=== PATIENT | female | born 1930 | race African-American/Black ===

== ENCOUNTER 2017-09-30 17:38 | Inpatient (IN) | payer OTHER ==
[~2017-09-30] VITALS: Ht 162.6 cm; Wt 75.5 kg
--- NOTE | ~2017-09-30 | 2DMMODE ---
[facility] [address] [place] [address] 2 D/M-MODE ECHOCARDIOGRAM Name: ED BASS Room #: 363-P ADM IN M.R.#: [id number] Admission: 09/30/17 Attend Phys: Jaz Escobedo Discharge: Date of : [birth year] Date of Service: 10/01/17 1108 Report #: [id number] THIS REPORT FOR: //name// APPROVED REPORT Study performed: 10/01/2017 10:27:12 EXAM: Comprehensive 2D, Doppler, and color-flow Echocardiogram Patient Location: Echo lab Room #: [facility] Status: routine BSA: 1.78 HR: 106 bpm BP: 140/96 mmHg Rhythm: Tachycardia Other Information Study Quality: Adequate Indications Elevated troponin, CHF. Hx: Afib, CHF, CM 2D Dimensions RVDd: 37.56 mm LVEF(%): 24.80 (>50%) IVSd: 9.21 (7-11mm) LVOT Diam: 20.33 (18-24mm) LVDd: 50.24 mm PWd: 8.56 (7-11mm) LVDs: 44.47 (25-40mm) Aortic Root: 35.67 mm Valerio's LVEF: 24.80 % Volumes Left Atrial Volume (Systole) Single Plane 4CH: 71.65 mL Single Plane 2CH: 85.41 mL LA ESV Index: 48.00 mL/m2 Aortic Valve AoV Peak Jeramy.: 1.82 m/s AO Peak Gr.: 13.26 mmHg LVOT Max P.51 mmHg LVOT Max V: 1.17 m/s ORALIA Vmax: 2.09 cm2 Pulmonary Valve PV Peak Jeramy.: 1.01 m/s PV Peak Gr.: 4.08 mmHg [facility] [place] [address] 2 D/M-MODE ECHOCARDIOGRAM Name: ED BASS Room #: 363-[facility] IN ..#: [id number] Admission: 09/30/17 Attend Phys: Jaz Escobedo Discharge: Date of : [birth year] Date of Service: 10/01/17 1108 Report #: [id number] Tricuspid Valve TR Peak Jeramy.: 2.77 m/s RAP Estimate: 5.00 mmHg TR Peak Gr.: 30.72 mmHg PA Pressure: 36.00 mmHg Left Ventricle The left ventricle is normal size. There is normal left ventricular wall thickness. Left ventricular systolic function is moderately decreased. LVEF is 35%. This study is not technically sufficient to allow evaluation of the LV diastolic function. Right Ventricle The right ventricle is normal size. Right ventricle is mildly hypokinetic. Atria Left atrium is severely dilated. The right atrium size is normal. Aortic Valve Aortic valve leaflets are mildly thickened and calcified, trileaflet. Trace aortic regurgitation. There is no aortic valvular stenosis. Mitral Valve Mitral valve leaflets are mildly thickened and calcified. Moderate mitral regurgitation. No evidence of mitral valve stenosis. Tricuspid Valve The tricuspid valve is normal in structure. Mild tricuspid regurgitation. Estimated PAP is 35-40mmHg. Pulmonic Valve The pulmonary valve is normal in structure. Trace pulmonic regurgitation. Great Vessels The aortic root is normal in size. Ascending aorta is not well visualized. IVC is normal in size and collapses >50% with inspiration. Pericardium Trace pericardial effusion <Conclusion> [facility] [address] [place] [address] 2 D/M-MODE ECHOCARDIOGRAM Name: ED BASS Room #: 363-P [facility] IN M.R.#: [id number] Admission: 09/30/17 Attend Phys: Jaz Escobedo Discharge: Date of : [birth year] Date of Service: 10/01/17 1108 Report #: [id number] Left ventricular systolic function is moderately decreased. LVEF is 35%. Left atrium is severely dilated. Aortic valve leaflets are mildly thickened and calcified, trileaflet. No aortic valvular stenosis, trace insufficiency. Mitral valve leaflets are mildly thickened and calcified. Moderate mitral regurgitation. Mild tricuspid regurgitation. Estimated pulmonary artery pressure of 35-40mmHg. Trace pericardial effusion <ELECTRONICALLY SIGNED> By: Donald Nunez MD, FACC 10/01/17 1108 1108 1108 Donald Nunez MD, FACC /INF
--- NOTE | ~2017-09-30 | HC ---
[facility] [place] [address] CONSULTATION Name: ED BASS Room #: 363-P [facility] IN M.R.#: [id number] Admission: 09/30/17 Attend Phys: Seth Mullen MD Discharge: 10/04/17 Date of : [birth year] Report #: [id number] THIS REPORT FOR: //name// CC: Suzanne Mullen REASON FOR CONSULTATION: Elevated creatinine. REASON FOR PRESENTATION: Shortness of breath and weakness. HISTORY OF PRESENT ILLNESS: An 86-year-old with extensive past medical history including congestive heart failure. She is known to have SVT, cardiomyopathy, DVT. She resides at [facility]. She started to have some weakness and shortness of breath a few days before her presentation. She denies any chest pain. Shortness of breath was at rest and on exertion. No syncope. She did report to some orthopnea. She was brought for further evaluation and management. On presentation, she was found to have an elevated creatinine at 2.5. The last creatinine we have on her was back in 09/2015 and this was 0.6. I am being asked to evaluate her for her kidney issues. UA looked dirty on presentation and cultures grew E. coli. As of this morning, her creatinine is slightly better down to 2.3. She is not aware of any previous renal issues as she stated. However, I am not really sure how accurate it is. Ejection fraction was found to be 35%. She had some moderate valvular issues. PAST MEDICAL HISTORY: 1. Cardiomyopathy. 2. Atrial fibrillation. 3. DVT. 4. Degenerative joint disease. FAMILY HISTORY: Significant for heart disease on her mother's side. SOCIAL HISTORY: She lives at the [facility]. She is . No drug or alcohol abuse. ALLERGIES: No known drug allergies. PAST SURGICAL HISTORY: 1. Hysterectomy. 2. Hernia repair. 3. Pain in the left hip. MEDICATIONS: 1. Lasix. 2. Potassium. 3. Carvedilol. 4. Lisinopril. [facility] [address] [place] [address] CONSULTATION Name: ED BASS Room #: 363-P [facility] IN M.R.#: [id number] Admission: 09/30/17 Attend Phys: Seth Mullen MD Discharge: 10/04/17 Date of : [birth year] Report #: [id number] REVIEW OF SYSTEMS: GENERAL: No fever or chills, but significant for weakness. CARDIOVASCULAR: No chest pain. PULMONARY: No cough, but significant for shortness of breath. GASTROINTESTINAL: No nausea or vomiting. GENITOURINARY: As per the history of present illness. PHYSICAL EXAMINATION: GENERAL: He is alert, oriented. VITAL SIGNS: Blood pressure is low at 85/53. HEAD AND NECK: Elevated jugular venous pressure. CHEST: No crackles. CARDIOVASCULAR: No rub. ABDOMEN: Soft, nontender. LOWER EXTREMITIES: Trace edema. LABORATORY DATA: Reviewed. Thrombocytopenia present. Creatinine is down to 2.3. Potassium is low at 3.0. ASSESSMENT, IMPRESSION AND PLAN: 1. Acute kidney injury. 2. Chronic kidney disease. 3. Congestive heart failure. 4. Atrial fibrillation. 5. Remote history of cerebrovascular accident. 6. Hypertension. 7. Agree with the current management and plan of holding her LINDA inhibitor, Lasix. 8. Gentle hydration. 9. Augment her heart medications. 10. Replace electrolytes. 11. Creatinine seems to be trending down; however, I am not really sure where it would settle given the fact that the last creatinine we have on her was back in 2016. 10. Continue to avoid nephrotoxins. 11. We probably can stop the IV fluid in the morning. <ELECTRONICALLY SIGNED> By: Aurelio Winkler MD 10/07/17 0832 0920 1016 Aurelio Winkler MD /nt
--- NOTE | ~2017-09-30 | EKG ---
[address] [place] [address] ELECTROCARDIOGRAM REPORT Name: ED BASS Room #: 363-P ADM IN M.R.#: [id number] Admission: 09/30/17 Attend Phys: Jaz Munoz Discharge: Date of : [birth year] Report #: [id number] THIS REPORT FOR: //name// [facility] Test Date: 2017-09-30 Test Time: 17:46:58 Pat Name: ED BASS Department: Room: 363 Gender: F Market Analysis Director: IRINEO : 1930 Requested By: Lila Lugo Order Number: [id number] MD: Carlos Betancourt Measurements Intervals [place] Rate: 92 P: 0 [place]: 179 QRS: -42 QRSD: 110 T: 52 QT: 413 QTc: 511 Interpretive Statements Sinus rhythm Left anterior fascicular block Abnormal R-wave progression, late transition Minimal ST elevation, lateral leads Electronically Signed On 10-01-2017 7:44:20 TEA ROOM MANAGER by Carlos Betancourt [email or web address] <ELECTRONICALLY SIGNED> By: Carlos Betancourt MD 10/01/17 0744 45 45 Carlos Betancourt MD /NAZ
[~2017-09-30 17:38] MED LIST: CARAFATE 1 GM TA1 G1 PO; CARVEDILOL12.5 MG PO; GABAPENTIN 100100 MG PO; GABAPENTIN100 MG PO; LASIX 20 MG TAB20 MG PO; METOPROLOL TART25 MG PO; NORCO 7.5-3251 EACH PO; PACERONE 200 M200 M1 PO; PAXIL10 MG; POTASSIUM20 PO; PRINIVIL10 MG PO; XARELTO20 MG PO
[2017-09-30 17:40] VITALS: BP 124/93
[2017-09-30 18:00] LABS: HEMATOCRIT 34.1 % (37.0-47.0); RBC 3.76 mil/uL (4.20-5.00); WBC 11.8 thou/uL (4.0-11.0)
[2017-09-30 18:01] LABS: HEMOGLOBIN 11.1 gm/dL (12.0-15.0); MCH 29.6 pg (26.0-34.0); MCHC 32.6 g/dL (28.0-37.0); MCV 90.7 fL (80.0-100.0); RDW 15.6 % (10.5-14.5)
[2017-09-30 18:02] LABS: PLATELET COUNT 72 thou/uL (150-400)
[2017-09-30 18:05] LABS: URINE BILIRUBIN NEGATIVE (Negative); URINE BLOOD 3+ (Negative); URINE CLARITY SL CLOUDY; URINE COLOR YELLOW; URINE GLUCOSE-RANDOM* NEGATIVE (Negative); URINE KETONES NEGATIVE (Negative); URINE LEUKOCYTES TRACE (Negative); URINE NITRITE POSITIVE (Negative); URINE PROTEIN (DIPSTICK) 2+ (Negative)
[2017-09-30 18:07] LABS: CALCIUM 7.4 mg/dL (8.5-10.1); CREATININE 2.9 mg/dL (0.6-1.0); POTASSIUM 4.7 mmol/L (3.5-5.1)
[2017-09-30] MEDS ORDERED: VITAMIN D1000 UNI1 PO (18:08)
[2017-09-30] MEDS ORDERED: B12INJ IM (18:08)
[2017-09-30 18:11] LABS: BACTERIA >30 Many /HPF (None Seen); CASTS None Seen /LPF (None Seen); CRYSTALS None Seen /LPF (None Seen); SQUAMOUS 0-3 Few /LPF (0-3); URINE WBC 0-5 Rare /HPF (0-5)
[2017-09-30 18:15] LABS: TROPONIN-I 0.29 ng/mL (<0.06)
[2017-09-30 18:22] LABS: ANISOCYTOSIS 1+
[2017-09-30 18:34] VITALS: BP 124/93
[2017-09-30 19:39] VITALS: BP 87/56; BP 91/55
[2017-09-30 20:37] VITALS: BP 86/52
[2017-09-30 21:36] VITALS: BP 109/70
[2017-10-01 00:25] VITALS: BP 117/73
[2017-10-01 03:59] VITALS: BP 95/60
[2017-10-01 07:21] LABS: HEMATOCRIT 32.3 % (37.0-47.0); HEMOGLOBIN 10.9 gm/dL (12.0-15.0); MCH 30.1 pg (26.0-34.0); MCHC 33.7 g/dL (28.0-37.0); MCV 89.4 fL (80.0-100.0); RBC 3.62 mil/uL (4.20-5.00); RDW 15.6 % (10.5-14.5); WBC 10.9 thou/uL (4.0-11.0)
[2017-10-01 07:38] LABS: CALCIUM 7.2 mg/dL (8.5-10.1); CREATININE 2.6 mg/dL (0.6-1.0); TROPONIN-I 0.22 ng/mL (<0.06)
[2017-10-01 07:41] LABS: POTASSIUM 3.2 mmol/L (3.5-5.1)
[2017-10-01 08:10] VITALS: BP 140/96
[2017-10-01 11:32] VITALS: BP 124/84
[2017-10-01 14:40] LABS: ABSOLUTE RETIC COUNT 0.0384 10^6/uL; OBSERVED RETIC COUNT 1.11 % (0.6-2.6)
[2017-10-01 14:52] LABS: ALBUMIN 1.8 g/dL (3.4-5.0); CALCIUM 7.3 mg/dL (8.5-10.1); CREATININE 2.5 mg/dL (0.6-1.0); MAGNESIUM 1.7 mg/dL (1.8-2.4); POTASSIUM 3.1 mmol/L (3.5-5.1); TOTAL BILIRUBIN 0.6 mg/dL (<0.1-1.0); TOTAL PROTEIN 5.4 g/dL (6.4-8.2)
[2017-10-01 15:01] LABS: INR 1.2
[2017-10-01 15:27] LABS: TSH 0.639 uIU/mL (0.358-3.740)
[2017-10-01 17:28] VITALS: BP 135/75
[2017-10-01 19:27] VITALS: BP 107/75
[2017-10-01 23:24] LABS: URINE CREATININE-RANDOM* 52.9 mg/dL
[2017-10-02] VITALS (7 sets, daily range): BP systolic 69–123; BP diastolic 38–83
[2017-10-02 06:25] LABS: ALBUMIN 1.7 g/dL (3.4-5.0); CALCIUM 7.4 mg/dL (8.5-10.1); CREATININE 2.3 mg/dL (0.6-1.0); PHOSPHORUS 4.6 mg/dL (2.5-4.9)
[2017-10-03 00:16] VITALS: BP 107/65
[2017-10-03 03:48] VITALS: BP 99/66
[2017-10-03 06:41] LABS: HEMATOCRIT 30.1 % (37.0-47.0); HEMOGLOBIN 9.8 gm/dL (12.0-15.0); MCH 29.6 pg (26.0-34.0); MCHC 32.5 g/dL (28.0-37.0); RBC 3.31 mil/uL (4.20-5.00); RDW 16.5 % (10.5-14.5); WBC 11.6 thou/uL (4.0-11.0)
[2017-10-03 06:56] LABS: ALBUMIN 1.6 g/dL (3.4-5.0); CALCIUM 7.9 mg/dL (8.5-10.1); CREATININE 2.1 mg/dL (0.6-1.0); POTASSIUM 3.6 mmol/L (3.5-5.1)
[2017-10-03 16:35] VITALS: BP 90/50
[2017-10-03 19:13] VITALS: BP 111/70
[2017-10-04 03:53] VITALS: BP 102/65
[2017-10-04 06:21] LABS: ALBUMIN 1.6 g/dL (3.4-5.0); CREATININE 1.8 mg/dL (0.6-1.0); PHOSPHORUS 3.4 mg/dL (2.5-4.9); POTASSIUM 3.7 mmol/L (3.5-5.1)
[2017-10-04 07:21] VITALS: BP 109/76
[2017-10-04 12:15] VITALS: BP 114/76
[2017-10-04] MEDS ORDERED: DUONEB 2.5-0.5 M3 ML INH (12:59)
[2017-10-04] MEDS ORDERED: KEFLEX500 M1 PO (12:59)
[2017-10-04 16:03] VITALS: BP 129/81
== END 2017-10-04 18:05 | DRG 682 ==
LOC: ER 17:38 → 3W 18:46 → EROBS 18:46 → 3W 20:17
PROVIDERS: Emergency Medicine; Hospitalist; Nurse Practitioner; Registered Nurse
DX: N17.9 Acute kidney failure, unspecified (principal); I50.43 Acute on chronic combined systolic (congestive) and diastolic (congestive) heart failure; J96.01 Acute respiratory failure with hypoxia; N39.0 Urinary tract infection, site not specified; I42.9 Cardiomyopathy, unspecified; I13.0 Hypertensive heart and chronic kidney disease with heart failure and stage 1 through stage 4 chronic kidney disease, or unspecified chronic kidney disease; M19.90 Unspecified osteoarthritis, unspecified site; N18.9 Chronic kidney disease, unspecified; G62.9 Polyneuropathy, unspecified; I48.0 Paroxysmal atrial fibrillation; D69.6 Thrombocytopenia, unspecified; H91.90 Unspecified hearing loss, unspecified ear; F32.9 Major depressive disorder, single episode, unspecified; E87.6 Hypokalemia; Z66 Do not resuscitate; Z51.5 Encounter for palliative care; T50.905A Adverse effect of unspecified drugs, medicaments and biological substances, initial encounter; Z90.710 Acquired absence of both cervix and uterus; Z86.718 Personal history of other venous thrombosis and embolism; Z82.49 Family history of ischemic heart disease and other diseases of the circulatory system; Z86.73 Personal history of transient ischemic attack (TIA), and cerebral infarction without residual deficits; Z79.01 Long term (current) use of anticoagulants; Z79.899 Other long term (current) drug therapy
CPT/HCPCS: 10879

== ENCOUNTER 2018-02-01 23:07 | Inpatient (IN) | payer OTHER ==
[~2018-02-01] VITALS: Ht 157.5 cm; Wt 59.0 kg
--- NOTE | ~2018-02-01 | EKG ---
[address] [place] [address] ELECTROCARDIOGRAM REPORT Name: ED BASS Room #: 464-P ADM IN M.R.#: [id number] Admission: 02/02/18 Attend Phys: Seth Mullen MD Discharge: Date of : [birth year] Report #: [id number] THIS REPORT FOR: //name// [facility] ED Test Date: 2018-02-01 Test Time: 23:19:21 Pat Name: DE BASS Department: Room: Gender: F Wood Bucker: marty : 1930 Requested By: Rayray Gruber Order Number: [id number] MD: Carlos Betancourt Measurements Intervals [place] Rate: 90 P: -19 [place]: 166 QRS: -57 QRSD: 107 T: 81 QT: 369 QTc: 452 Interpretive Statements Sinus rhythm Multiple ventricular premature complexes Left anterior fascicular block Abnormal R-wave progression, early transition Borderline T abnormalities, anterior leads Compared to ECG 09/30/2017 17:46:58 Ventricular premature complex(es) now present T-wave abnormality now present ST (T wave) deviation no longer present Electronically Signed On 02-02-2018 12:17:49 CDT by Carlos Betancourt [email or web address] <ELECTRONICALLY SIGNED> By: Carlos Betancourt MD 02/02/18 1217 18 18 Carlos Betancourt MD /EPI
[~2018-02-01 23:07] MED LIST changes: +B12INJ IM; +DUONEB 2.5-0.5 M3 ML INH; +KEFLEX500 M1 PO; +VITAMIN D1000 UNI1 PO
[2018-02-01 23:11] VITALS: BP 88/61
[2018-02-01] MEDS ORDERED: CARAFATE 1 GM TA1 G1 PO (23:30)
[2018-02-01] MEDS ORDERED: LOPRESSOR25 PO (23:31)
[2018-02-01 23:54] LABS: HEMATOCRIT 34.1 % (37.0-47.0); HEMOGLOBIN 11.2 gm/dL (12.0-15.0); MCH 31.2 pg (26.0-34.0); MCHC 32.7 g/dL (28.0-37.0); MCV 95.5 fL (80.0-100.0); PLATELET COUNT 175 thou/uL (150-400); RBC 3.57 mil/uL (4.20-5.00); RDW 14.7 % (10.5-14.5); WBC 16.1 thou/uL (4.0-11.0)
[2018-02-02 00:01] LABS: ANION GAP 6 mmol/L (7-16); BUN 17 mg/dL (7-18); CALCIUM 8.1 mg/dL (8.5-10.1); CHLORIDE 95 mmol/L (98-107); CO2 35 mmol/L (21-32); CREATININE 1.2 mg/dL (0.6-1.0); GLUCOSE 102 mg/dL (74-106); SODIUM 136 mmol/L (136-145)
[2018-02-02 00:03] LABS: POTASSIUM 2.6 mmol/L (3.5-5.1)
[2018-02-02 00:10] LABS: ALBUMIN 1.7 g/dL (3.4-5.0); SGOT 25 U/L (15-37); SGPT 18 U/L (30-65); TOTAL BILIRUBIN 2.6 mg/dL (<0.1-1.0); TOTAL PROTEIN 5.9 g/dL (6.4-8.2); TROPONIN-I < 0.04 ng/mL (<0.06)
[2018-02-02 00:15] LABS: ABSOLUTE NEUTROPHILS 15.3 thou/uL (1.4-8.2); POLYCHROMASIA 1+
[2018-02-02 00:58] LABS: URINE BILIRUBIN NEGATIVE (Negative); URINE BLOOD 2+ (Negative); URINE CLARITY SL CLOUDY; URINE COLOR YELLOW; URINE GLUCOSE-RANDOM* NEGATIVE (Negative); URINE KETONES NEGATIVE (Negative); URINE PROTEIN (DIPSTICK) 1+ (Negative); URINE SPECIFIC GRAVITY <= 1.005 (1.005-1.035)
[2018-02-02 01:00] LABS: URINE LEUKOCYTES-REFLEX 3+ (Negative); URINE NITRITE-REFLEX POSITIVE (Negative)
[2018-02-02 01:08] LABS: CASTS None Seen /LPF (None Seen); MUCUS 0-3 Light strn/LPF (None Seen); SQUAMOUS 0-3 Few /LPF (0-3); URINE RBC 3-10 Few /HPF (0-2); URINE WBC-REFLEX >25 Many /HPF (0-5)
[2018-02-02 01:09] LABS: BACTERIA-REFLEX >30 Many /HPF (None Seen); CRYSTALS None Seen /LPF (None Seen); WBC CLUMPS Moderate (None Seen)
[2018-02-02 02:04] VITALS: BP 93/61
[2018-02-02] MEDS ORDERED: PACERONE 200 M200 M1 PO (02:47)
[2018-02-02 03:25] VITALS: BP 96/66
[2018-02-02 07:41] LABS: HEMATOCRIT 31.4 % (37.0-47.0); MCH 31.1 pg (26.0-34.0); MCHC 31.8 g/dL (28.0-37.0); MCV 97.8 fL (80.0-100.0); RBC 3.21 mil/uL (4.20-5.00); RDW 14.8 % (10.5-14.5); WBC 15.3 thou/uL (4.0-11.0)
[2018-02-02 07:52] LABS: CALCIUM 7.6 mg/dL (8.5-10.1); CREATININE 1.1 mg/dL (0.6-1.0); POTASSIUM 3.2 mmol/L (3.5-5.1)
[2018-02-02 09:13] VITALS: BP 90/58
[2018-02-02 09:16] LABS: FOLIC ACID 26.5 ng/mL (8.6-58.9)
[2018-02-02 19:54] VITALS: BP 103/73
[2018-02-03 07:05] VITALS: BP 110/74
[2018-02-03 07:28] LABS: HEMATOCRIT 29.7 % (37.0-47.0); HEMOGLOBIN 9.8 gm/dL (12.0-15.0); MCH 31.6 pg (26.0-34.0); MCHC 32.8 g/dL (28.0-37.0); MCV 96.1 fL (80.0-100.0); RBC 3.09 mil/uL (4.20-5.00); RDW 14.7 % (10.5-14.5); WBC 13.3 thou/uL (4.0-11.0)
[2018-02-03 07:37] LABS: CALCIUM 7.6 mg/dL (8.5-10.1); CREATININE 1.2 mg/dL (0.6-1.0); POTASSIUM 3.4 mmol/L (3.5-5.1)
[2018-02-03 19:53] VITALS: BP 83/56
[2018-02-03 21:09] VITALS: BP 103/70
[2018-02-04 07:48] LABS: HEMATOCRIT 25.9 % (37.0-47.0); HEMOGLOBIN 8.6 gm/dL (12.0-15.0); MCH 31.7 pg (26.0-34.0); MCHC 33.1 g/dL (28.0-37.0); MCV 95.9 fL (80.0-100.0); PLATELET COUNT 118 thou/uL (150-400); RDW 14.2 % (10.5-14.5); WBC 13.8 thou/uL (4.0-11.0)
[2018-02-04 07:58] LABS: CALCIUM 7.5 mg/dL (8.5-10.1); CREATININE 1.1 mg/dL (0.6-1.0); POTASSIUM 3.4 mmol/L (3.5-5.1)
[2018-02-04 07:59] VITALS: BP 101/71
[2018-02-04 08:40] LABS: ABSOLUTE NEUTROPHILS 12.6 thou/uL (1.4-8.2)
[2018-02-04 08:42] LABS: ANISOCYTOSIS SLIGHT; POLYCHROMASIA 1+
[2018-02-04 08:43] LABS: HYPOCHROMASIA SLIGHT; TARGET CELLS FEW
[2018-02-04 17:10] VITALS: BP 94/67
[2018-02-04 19:38] VITALS: BP 91/62
[2018-02-05 07:15] VITALS: BP 81/54
[2018-02-05 07:24] LABS: HEMATOCRIT 23.9 % (37.0-47.0); HEMOGLOBIN 7.9 gm/dL (12.0-15.0); MCH 31.9 pg (26.0-34.0); MCHC 32.9 g/dL (28.0-37.0); MCV 97.2 fL (80.0-100.0); RBC 2.46 mil/uL (4.20-5.00); RDW 14.6 % (10.5-14.5)
[2018-02-05 07:35] LABS: CALCIUM 7.3 mg/dL (8.5-10.1); CREATININE 1.2 mg/dL (0.6-1.0); POTASSIUM 3.6 mmol/L (3.5-5.1)
[2018-02-05 15:46] VITALS: BP 104/74
[2018-02-05 20:00] VITALS: BP 96/60
[2018-02-06 07:16] LABS: HEMATOCRIT 25.8 % (37.0-47.0); HEMOGLOBIN 8.4 gm/dL (12.0-15.0); MCH 31.4 pg (26.0-34.0); MCHC 32.5 g/dL (28.0-37.0); MCV 96.7 fL (80.0-100.0); RBC 2.67 mil/uL (4.20-5.00); RDW 14.6 % (10.5-14.5); WBC 13.9 thou/uL (4.0-11.0)
[2018-02-06 07:26] LABS: CALCIUM 7.6 mg/dL (8.5-10.1); CREATININE 1.1 mg/dL (0.6-1.0); POTASSIUM 3.8 mmol/L (3.5-5.1)
[2018-02-06 07:35] VITALS: BP 98/71
[2018-02-06 20:14] VITALS: BP 95/98
[2018-02-07 08:03] VITALS: BP 108/70
[2018-02-07] MEDS ORDERED: LEVAQUIN 750 M750 MG PO (12:52)
[2018-02-07] MEDS ORDERED: MIRALAX17 GM PO (17:35)
[2018-02-07] MEDS ORDERED: COLACE100 MG PO (17:35)
== END 2018-02-07 13:09 | DRG 871 ==
LOC: ER 23:07 → 4W 02-02 01:13 → SICU 02-02 01:13 → EROBS 02-02 01:13 → 4W 02-02 02:04 → SICU 02-02 16:42 → 4W 02-02 17:06 → SICU 02-02 17:34
PROVIDERS: Emergency Medicine; Hospitalist; Nurse Practitioner Family
DX: A41.9 Sepsis, unspecified organism (principal); J18.9 Pneumonia, unspecified organism; I26.99 Other pulmonary embolism without acute cor pulmonale; E43 Unspecified severe protein-calorie malnutrition; N17.9 Acute kidney failure, unspecified; N39.0 Urinary tract infection, site not specified; I48.91 Unspecified atrial fibrillation; I50.9 Heart failure, unspecified; M19.90 Unspecified osteoarthritis, unspecified site; G62.9 Polyneuropathy, unspecified; I11.0 Hypertensive heart disease with heart failure; E86.0 Dehydration; G89.29 Other chronic pain; K59.00 Constipation, unspecified; E87.6 Hypokalemia; Z86.73 Personal history of transient ischemic attack (TIA), and cerebral infarction without residual deficits; Z82.49 Family history of ischemic heart disease and other diseases of the circulatory system; Z79.899 Other long term (current) drug therapy; Z90.710 Acquired absence of both cervix and uterus; Z86.718 Personal history of other venous thrombosis and embolism; Z68.23 Body mass index [BMI] 23.0-23.9, adult
CPT/HCPCS: 15001

== ENCOUNTER 2018-02-21 16:16 | Observation (INO) | payer OTHER ==
[~2018-02-21] VITALS: Ht 149.9 cm; Wt 62.1 kg
[~2018-02-21 16:16] MED LIST changes: +COLACE100 MG PO; +LEVAQUIN 750 M750 MG PO; +LOPRESSOR25 PO; +MIRALAX17 GM PO
[2018-02-21 17:30] VITALS: BP 140/90
[2018-02-21 18:21] LABS: HEMATOCRIT 25.9 % (37.0-47.0); HEMOGLOBIN 8.4 gm/dL (12.0-15.0); MCH 31.6 pg (26.0-34.0); MCHC 32.3 g/dL (28.0-37.0); MCV 98.1 fL (80.0-100.0); RBC 2.64 mil/uL (4.20-5.00); RDW 15.8 % (10.5-14.5); WBC 10.8 thou/uL (4.0-11.0)
[2018-02-21 18:29] LABS: CALCIUM 8.3 mg/dL (8.5-10.1); CREATININE 1.1 mg/dL (0.6-1.0); POTASSIUM 4.3 mmol/L (3.5-5.1)
[2018-02-21 19:12] VITALS: BP 108/73
[2018-02-21 19:58] LABS: HEMATOCRIT 24.6 % (37.0-47.0); HEMOGLOBIN 7.9 gm/dL (12.0-15.0)
[2018-02-22] VITALS (7 sets, daily range): BP systolic 92–112; BP diastolic 61–74
[2018-02-23 04:35] VITALS: BP 99/69
[2018-02-23 08:41] VITALS: BP 102/72
[2018-02-23] MEDS ORDERED: IRON325 PO (09:45)
== END 2018-02-23 12:30 | disposition short-term general hospital (02) ==
LOC: 4W 16:16
PROVIDERS: Family Medicine
DX: D64.9 Anemia, unspecified (principal); I48.91 Unspecified atrial fibrillation; R53.81 Other malaise; I11.0 Hypertensive heart disease with heart failure; I50.9 Heart failure, unspecified; G62.9 Polyneuropathy, unspecified; M19.90 Unspecified osteoarthritis, unspecified site; Z86.73 Personal history of transient ischemic attack (TIA), and cerebral infarction without residual deficits; Z86.718 Personal history of other venous thrombosis and embolism; Z90.710 Acquired absence of both cervix and uterus; Z98.890 Other specified postprocedural states

== ENCOUNTER 2018-04-26 13:31 | Inpatient (IN) | payer OTHER ==
[~2018-04-26] VITALS: Ht 162.6 cm; Wt 56.0 kg
[2018-04-26] VITALS (9 sets, daily range): BP systolic 77–95; BP diastolic 49–66
--- NOTE | ~2018-04-26 | H ---
[facility] [place] [address] [address] [place] [address] HISTORY AND PHYSICAL Name: ED BASS Room #: 238-P ADM IN M.R.#: [id number] Admission: 04/26/18 Attend Phys: Aurelio Winkler MD Discharge: Date of : [birth year] Report #: [id number] THIS REPORT FOR: //name// CC: Aurelio Winkler [facility] physician/PCP DATE OF SERVICE: 04/26/2018 REASON FOR PRESENTATION: Drainage from the wound on her sacrum. HISTORY OF PRESENT ILLNESS: This is obtained from the medical chart and talking with the son as the patient has dementia and is not able to provide me with the history. She is an 87-year-old who resides at the [facility]. She carries a diagnosis of AFib, heart failure with ejection fraction of around 30%, remote history of DVT and hypertension. She was sent from her nursing facility because of the drainage from the ulcer on her sacrum. She has been getting progressively weak with increasing pain. She denies any fever or chills. No reported fever or chills in the nursing facility. Details of the history as I have stated are not very clear given the patient's mental status. She had been residing in the nursing facility for some time. There seems to be some dressing applied to the area of interest. I had reviewed all of her medical records in the past including her [facility] office clinic and listed amongst her issues, DVT, chronic kidney disease, hypertension, SVT, rheumatoid arthritis, heart failure. When the patient presented to the Emergency Room, she met all the criteria for severe sepsis and she is admitted accordingly to the Intensive Care Unit. PAST MEDICAL HISTORY: Obtained from the medical charts. 1. Deep venous thrombosis. 2. Hypertension. 3. Heart failure. 4. Long-term anticoagulation. 5. Dementia. 6. Supraventricular tachycardia in the past, 7. Rheumatoid arthritis. 8. Venous stasis changes. 9. Radiculopathy. 10. Spinal stenosis. PAST SURGICAL HISTORY: 1. Total abdominal hysterectomy, bilateral salpingo-oophorectomy. 2. Left foot Oneal neuroma. 3. Bilateral cataract surgery. 4. Hiatal hernia surgery. 5. Bilateral ear tube placement. [facility] [address] [place] [address] HISTORY AND PHYSICAL Name: ED BASS Room #: 238-P [facility] IN .R.#: [id number] Admission: 04/26/18 Attend Phys: Aurelio Winkler MD Discharge: Date of : [birth year] Report #: [id number] SOCIAL HISTORY: No known drug or alcohol abuse. She resides in a nursing facility. FAMILY HISTORY: Unobtainable given the patient's mental status. REVIEW OF SYSTEMS: Really unobtainable given the patient's mental status. MEDICATIONS: Listed amongst the patient's medications from her nursing facility are the followin. Ipratropium/albuterol. 2. Amiodarone. 3. Carvedilol. 4. Gabapentin: 5. Furosemide. 6. Potassium chloride. PHYSICAL EXAMINATION: GENERAL: She is disoriented to time, place, and person. VITAL SIGNS: Blood pressure is 94/59, pulse rate 73. HEAD AND NECK: No jugular venous distention. CHEST: Decreased air entry bilaterally. CARDIOVASCULAR: No rub detected. ABDOMEN: Tender all over. LOWER EXTREMITIES: No edema. BACK: Sacral area examined, there is a foul smelling ulcer on the sacral area. DIAGNOSTIC DATA: CT abdomen and pelvis reviewed. There seems to be a diffuse inflammatory bowel process with distal bowel obstruction. There is a large interloop abscess in the mid lower abdomen surrounded by bowel with diffuse mesenteric fat. There is thrombosis in the infrarenal IVC and in both iliac veins. There is an intra and extrahepatic biliary ductal dilatation with gallbladder distention. There is also bilateral pleural effusion with rectal distention. LABORATORY DATA: White blood cell count 12.4, hemoglobin 7.1, platelet 131. Sodium 139, potassium 3, BUN 22, creatinine is 1.3. Lactic acid is 0.6. Magnesium is 1.6. ASSESSMENT, IMPRESSION AND PLAN: 1. Septic shock. 2. Intra-abdominal abscess. 3. Colitis with what seems to be distal bowel obstruction. 4. Intra and extrahepatic biliary ductal dilatation with gallbladder distention. 5. Bilateral pleural effusion. 6. [place] [address] HISTORY AND PHYSICAL Name: ED BASS Room #: 238-P ADM IN M.R.#: [id number] Admission: 04/26/18 Attend Phys: Aurelio Winkler MD Discharge: Date of : [birth year] Report #: [id number] 7. Hypotension. 8. Extremely ill patient. We will have to discuss with her son the scope of care. 9. As for now, we will continue with full support including septic protocol. 10. Admission to the ICU. 11. IV fluid resuscitation plus pressors. 12. Antibiotics. 13. ID consultation. 14. I am not really sure if we even need to consider any intervention at this point; however, I will address appropriately with the family members. 15. No anticoagulation anticipating potential need for drainage of the abscess. 16. ID consultation regarding her presentation. 17. Wound care. 18. Based on the initial laboratory values and results, we will decide about further management plan. <ELECTRONICALLY SIGNED> By: Aurelio Winkler MD 04/27/18 1020 [id number] 194 Aurelio Winkler MD /nt
--- NOTE | ~2018-04-26 | HC ---
[facility] [place] [address] [address] CONSULTATION Name: ED BASS Room #: 238-P ADM IN M.R.#: [id number] Admission: 04/26/18 Attend Phys: Aurelio Winkler MD Discharge: Date of : [birth year] Report #: [id number] THIS REPORT FOR: //name// CC: Aurelio Winkler [facility] physician/PCP DATE OF SERVICE: 04/27/2018 ATTENDING PHYSICIAN: Dr. Winkler. REASON FOR CONSULTATION: Antibiotic management. HISTORY OF PRESENT ILLNESS: The patient is an 87-year-old woman admitted through the Emergency Room with a history of sacral decubitus and increase in pain. The patient was reported to be hurting all over. Her evaluation included CT scan of abdomen and pelvis that revealed intra-abdominal abscess that was percutaneously drained. She is started on combination of vancomycin and Zosyn. The patient has cognitive impairment. All information on this patient is gathered from the review of records. PAST MEDICAL HISTORY: Atrial fibrillation. Congestive heart failure. Previous hernia repair. Hysterectomy. Silent CVA. Hypertension. Previous DVT. Neuropathy. DRUG ALLERGIES: None listed. MEDICATIONS: She is on vancomycin 500 mg IV every 12 hours, Zosyn 3.375 grams IV every 8 hours, subcutaneous heparin 5000 units b.i.d., Levophed per protocol, intravenous fluids and potassium chloride supplementation. FAMILY HISTORY: Unable to obtain. SOCIAL HISTORY: Unable to obtain. The patient [facility] at [facility]. REVIEW OF SYSTEMS: Unable to obtain. PHYSICAL EXAMINATION: GENERAL: Elderly woman complaining of aching all over. VITAL SIGNS: Presenting with following vital signs: Temperature on admission 98.3, pulse 74, respirations 16 and BP 88/49. Currently, BP 76/60, respirations 18 and pulse 77. HEENMT: Head normocephalic and atraumatic. Pupils reactive, status post cataract surgery. Mouth, edentulous. NECK: Stiff. The patient is stiff all over. LUNGS: Decreased breath sounds on anterior and posterior lung pol[place]. On CT scan, she had pleural effusion. [address] [address] CONSULTATION Name: ED BASS Room #: 238-P [facility] IN M.R.#: [id number] Admission: 04/26/18 Attend Phys: Aurelio Winkler MD Discharge: Date of : [birth year] Report #: [id number] HEART: S1, S2. No gallop or murmur. BREASTS: Deferred. ABDOMEN: Soft. There is percutaneous draining catheter on the right lower quadrant. No fluid in the draining system. It is reported that 5 mL of bloody fluid was obtained. EXTREMITIES: No clubbing and cyanosis. NEUROLOGIC: Grossly within normal limits. BACK: Revealed necrotic tissue around the sacrococcygeal area. LABORATORY DATA: Sodium 140, potassium 3.6, BUN 19, creatinine 1.2, glucose 124, magnesium 1.6 and albumin 1.2. Protime 13.8. WBC 12,400, hemoglobin 7.1 g/dL and platelets 131,000. The white blood cell count differential revealed 89% segmented neutrophils and 6% lymphocytes. Urinalysis revealed trace blood, otherwise negative. RADIOLOGY EVALUATION: CT scan of abdomen and pelvis revealed diffuse inflammatory bowel process, possible distal bowel obstruction, large interloop abscess mid to lower abdomen with diffuse mesenteric fat stranding. Thrombosed infrarenal inferior vena cava in both iliac veins. Intrahepatic and extrahepatic biliary ductal dilatation and gallbladder distention. Bilateral pleural effusion with basilar atelectasis. Rectal distention. Coccygeal area decubitus. ASSESSMENT: 1. Sepsis secondary to #2 and #3. 2. Intra-abdominal abscess, status post percutaneous drainage. 3. Sacrococcygeal necrotic decubitus. 4. Malnutrition. 5. Anemia. 6. Dementia. 7. Bilateral pleural effusion. SUGGESTIONS: Recommend continue current regimen of vancomycin and Zosyn. Local wound care. Discussed with the patient's nurse and it appears family have entertained possibility of comfort care. They will decide later on in the week. Dr. Winkler, thank you for requesting my suggestions. <ELECTRONICALLY SIGNED> By: Titus Betancourt MD 04/28/18 0947 1202 0043 Titus Betancourt MD /nt
[~2018-04-26 13:31] MED LIST changes: +IRON325 PO
[2018-04-26 15:33] LABS: ABSOLUTE NEUTROPHILS 11.1 thou/uL (1.4-8.2); BASOPHILS 0.3 % (0.0-2.0); EOSINOPHILS 0.1 % (0.0-3.0); HEMATOCRIT 22.5 % (37.0-47.0); HEMOGLOBIN 7.1 gm/dL (12.0-15.0); LYMPHOCYTES 6.3 % (24.0-44.0); MCH 29.4 pg (26.0-34.0); MCHC 31.5 g/dL (28.0-37.0); MCV 93.3 fL (80.0-100.0); MONOCYTES 3.8 % (1.0-8.0); PLATELET COUNT 131 thou/uL (150-400); POLYS 89.5 % (36.0-66.0); RBC 2.41 mil/uL (4.20-5.00); RDW 18.4 % (10.5-14.5); WBC 12.4 thou/uL (4.0-11.0)
[2018-04-26 15:39] LABS: CALCIUM 7.1 mg/dL (8.5-10.1); CREATININE 1.3 mg/dL (0.6-1.0)
[2018-04-26 15:56] LABS: URINE BILIRUBIN NEGATIVE (Negative); URINE BLOOD TRACE (Negative); URINE CLARITY CLEAR; URINE COLOR YELLOW; URINE GLUCOSE-RANDOM* NEGATIVE (Negative); URINE KETONES NEGATIVE (Negative); URINE LEUKOCYTES-REFLEX NEGATIVE (Negative); URINE NITRITE-REFLEX NEGATIVE (Negative); URINE PROTEIN (DIPSTICK) NEGATIVE (Negative)
[2018-04-26 16:12] LABS: MAGNESIUM 1.6 mg/dL (1.8-2.4)
[2018-04-26 19:33] LABS: APTT 29.5 Seconds (24.5-32.8); INR 1.4; PROTIME 13.8 Seconds (9.3-11.4)
[2018-04-27] VITALS (42 sets, daily range): BP systolic 53–107; BP diastolic 34–78
[2018-04-27] MEDS ORDERED: KLOR-CON 1010 MEQ PO (01:20)
[2018-04-27] MEDS ORDERED: LOPERAMIDE 2 MG2 M1 PO (01:21)
[2018-04-27] MEDS ORDERED: ELIQUIS5 MG PO (01:23)
[2018-04-27 11:35] LABS: ALBUMIN 1.2 g/dL (3.4-5.0); CALCIUM 7.3 mg/dL (8.5-10.1); CREATININE 1.2 mg/dL (0.6-1.0); POTASSIUM 3.6 mmol/L (3.5-5.1); TOTAL BILIRUBIN 1.3 mg/dL (<0.1-1.0); TOTAL PROTEIN 4.6 g/dL (6.4-8.2)
[2018-04-28] VITALS (20 sets, daily range): BP systolic 74–104; BP diastolic 58–85
[2018-04-28 04:50] LABS: HEMATOCRIT 27.9 % (37.0-47.0); HEMOGLOBIN 8.8 gm/dL (12.0-15.0); MCH 29.5 pg (26.0-34.0); MCHC 31.6 g/dL (28.0-37.0); MCV 93.4 fL (80.0-100.0); RBC 2.98 mil/uL (4.20-5.00); RDW 18.8 % (10.5-14.5); WBC 14.6 thou/uL (4.0-11.0)
[2018-04-28 04:58] LABS: ALBUMIN 1.2 g/dL (3.4-5.0); CALCIUM 7.4 mg/dL (8.5-10.1); CREATININE 1.5 mg/dL (0.6-1.0); POTASSIUM 4.1 mmol/L (3.5-5.1); TOTAL BILIRUBIN 1.2 mg/dL (<0.1-1.0); TOTAL PROTEIN 4.8 g/dL (6.4-8.2)
[2018-04-29] VITALS (10 sets, daily range): BP systolic 75–133; BP diastolic 57–89
[2018-04-29 05:48] LABS: HEMOGLOBIN 6.9 gm/dL (12.0-15.0)
[2018-04-29 05:50] LABS: HEMATOCRIT 21.3 % (37.0-47.0); MCH 29.8 pg (26.0-34.0); MCHC 32.4 g/dL (28.0-37.0); PLATELET COUNT 211 thou/uL (150-400); RBC 2.32 mil/uL (4.20-5.00); RDW 18.8 % (10.5-14.5); WBC 12.4 thou/uL (4.0-11.0)
[2018-04-29 06:01] LABS: CALCIUM 7.4 mg/dL (8.5-10.1); CREATININE 1.4 mg/dL (0.6-1.0); MAGNESIUM 2.1 mg/dL (1.8-2.4); POTASSIUM 3.7 mmol/L (3.5-5.1); TOTAL BILIRUBIN 0.5 mg/dL (<0.1-1.0)
[2018-04-29 08:55] LABS: ABSOLUTE NEUTROPHILS 11.5 thou/uL (1.4-8.2); ANISOCYTOSIS 2+; HYPOCHROMASIA 2+; METAMYELOCYTES 1 %; PLATELET ESTIMATE NORMAL
[2018-04-29] MEDS ORDERED: MORPHINE S20 MG/5 ML PO (11:15)
== END 2018-04-29 20:00 | disposition hospice, home (50) | DRG 871 ==
LOC: ER 13:31 → ICU 18:24 → EROBS 18:24 → ICU 19:48
PROVIDERS: Hospitalist; Radiology Vascular & Interventional Radiology; Student in an Organized Health Care Education/Training Program
PROC: 05HY33Z Insertion of Infusion Device into Upper Vein, Percutaneous Approach (ICD-10-PCS; principal; 2018-04-26)
PROC: 0W9G30Z Drainage of Peritoneal Cavity with Drainage Device, Percutaneous Approach (ICD-10-PCS; 2018-04-27)
DX: A41.9 Sepsis, unspecified organism (principal); R65.21 Severe sepsis with septic shock; I13.0 Hypertensive heart and chronic kidney disease with heart failure and stage 1 through stage 4 chronic kidney disease, or unspecified chronic kidney disease; E46 Unspecified protein-calorie malnutrition; N17.9 Acute kidney failure, unspecified; K57.80 Diverticulitis of intestine, part unspecified, with perforation and abscess without bleeding; K56.609 Unspecified intestinal obstruction, unspecified as to partial versus complete obstruction; F03.90 Unspecified dementia, unspecified severity, without behavioral disturbance, psychotic disturbance, mood disturbance, and anxiety; Z51.5 Encounter for palliative care; K52.9 Noninfective gastroenteritis and colitis, unspecified; D64.9 Anemia, unspecified; E87.6 Hypokalemia; L89.150 Pressure ulcer of sacral region, unstageable; K56.41 Fecal impaction; Z66 Do not resuscitate; E86.0 Dehydration; M62.84 Sarcopenia; I95.9 Hypotension, unspecified; G62.9 Polyneuropathy, unspecified; I48.91 Unspecified atrial fibrillation; I50.9 Heart failure, unspecified; N18.9 Chronic kidney disease, unspecified; M06.9 Rheumatoid arthritis, unspecified; Z79.01 Long term (current) use of anticoagulants; Z90.710 Acquired absence of both cervix and uterus; Z98.42 Cataract extraction status, left eye; Z86.718 Personal history of other venous thrombosis and embolism; Z98.41 Cataract extraction status, right eye; Z79.899 Other long term (current) drug therapy; Z86.73 Personal history of transient ischemic attack (TIA), and cerebral infarction without residual deficits; Z68.21 Body mass index [BMI] 21.0-21.9, adult
CPT/HCPCS: 10078; 27001